=== PATIENT | female | born 1995 | race African-American/Black ===

== ENCOUNTER 2017-01-08 09:31 | Emergency (ER) | payer OTHER ==
[~2017-01-08] VITALS: Ht 160 cm; Wt 55.7 kg
[2017-01-08] MEDS ORDERED: KENALOG,ARISTOC80 GM TP (09:47)
[2017-01-08] MEDS ORDERED: PREDNISONE20 MG PO (09:47)
[2017-01-08] MEDS ORDERED: VENTOLIN HFA18 GM IH (09:48)
[2017-01-08 11:26] VITALS: BP 111/76
== END 2017-01-08 11:28 | disposition home or self-care (01) ==
LOC: EME 09:31
DX: J45.901 Unspecified asthma with (acute) exacerbation (principal); L30.9 Dermatitis, unspecified; F17.200 Nicotine dependence, unspecified, uncomplicated
CPT/HCPCS: 71020; 94640; 99281; 99283; J7512